=== PATIENT | female | born 1990 | race Two or more races ===

== ENCOUNTER → 2024-01-13 15:31 | Outpatient (REF) | payer BC, SELFPAY | LOC: HWRAD 15:31 | PROVIDERS: ATTENDING PHYSICIAN Family Medicine | DX: R51.9 Headache, unspecified (principal) | CPT/HCPCS: 70450 ==

== ENCOUNTER 2024-04-20 22:46 | Emergency (ER) | payer BC, SELFPAY ==
[2024-04-20 22:54] VITALS: BP 152/100
[2024-04-20 23:36] VITALS: BMI 23.6
--- NOTE | 2024-04-20 23:56 | ED.GENMED ---
History of Present Illness
General
Chief Complaint: Eye Problems
Source: patient
Exam Limitations: none
Time Seen by Provider: 04/20/24 23:05
Nursing documentation reviewed up to this point in time: agreed with
Travel History
Have you had any contact with someone who has COVID-19?: No
Do you have any symptoms of coronavirus? Fever > 100 degrees, chills, cough, shortness of breath, sore throat, loss of taste or smell, muscle aches, or headache?: No
History of Present Illness
History of Present Illness:
33-year-old female with history of migraines presents to the emergency room for evaluation of bilateral eye pain. She says that she feels like she has sand in both of her eyes; she says she is very sensitive to light. She says that she noticed
some irritation of her eyes a few days ago but did not start to have pain until today. She does wear contacts says that she got new contacts a few days ago. She says that she removed her contact lenses today due to pain. She denies any trauma to
the eyes although she says that she recently lost her pet and was crying a lot last week. She says she has history of allergies but never has severe eye discomfort with her allergies. She denies any loss of vision. She denies any discharge. She
denies any other complaints.
Past History
Past History
ED Past Medical History: Other (Syncope)
Social History
Tobacco: Non-smoker
Alcohol: Occasional
Family History
Family History: Other (Father with vasovagal syncope. Family history of hypertension hyperlipidemia and diabetes)
Review of Systems
Review of Systems
All Other Systems: ROS reviewed and negative except as documented in HPI and ROS
EENT: Reports other (Eye pain, photosensitivity, eye redness)
Phy Exam
Physical Exam
Physical Exam:
General: Well appearing and non-toxic
Head: Normocephalic atraumatic
Eyes: Pupils are 4 mm and reactive to light bilaterally; she has bilateral conjunctival injection; she has no hypopyon or hyphema; she has no foreign body on exploration of eyes bilaterally; extraocular movements are intact bilaterally; on Agustin-Pen
exam eye pressures , L , R; on fluorescein exam patient has bilateral circular corneal abrasions appear to be in the distribution of where contact lens would sit
ENT: protecting airway
Neck: appears supple
CV: No evidence of cyanosis
Resp: No accessory muscle use
Abd: Non-distended
Extremities: No deformities
Neuro: Alert
Psych: Normal affect
Skin: Intact
Scores
Heart Failure Risk
Heart Failure Risk Score: Not Applicable
Heart Score for Chest Pain Patients
STEMI patient?: Not applicable
Withdrawal Assessment of Alcohol
Withdrawal Assessment Completed?: Not applicable
Course
Orders/Labs/Results
Orders:
Orders
04/20/24 23:18
Visual Acuity- Treatment ONCE
04/20/24 23:25
Tetracaine HCl [Tetracaine 0.5% Ophthalmic Solution] 1 drop .ROUTE .STK-MED ONE
04/20/24 23:39
Ciprofloxacin HCl [Ciloxan 0.3% Ophthalmic Solution] See Dose Instructions OPHTH NOW STA
04/20/24 23:40
Ketorolac [Acular 0.5% Eye Drops] See Dose Instructions OPHTH ONCE ONE
Vital Signs
Initial and Last Documented VS:
Initial Vital Signs
Temp Pulse Resp BP Pulse Ox
36.8 C 89 18 152/100 100
04/20/24 22:54 04/20/24 22:54 04/20/24 22:54 04/20/24 22:54 04/20/24 22:54
Last Documented Vital Signs
Temp Pulse Resp BP Pulse Ox
36.8 C 89 18 152/100 100
04/20/24 22:54 04/20/24 22:54 04/20/24 22:54 04/20/24 22:54 04/20/24 22:54
MDM/Problems Addressed
Differential Diagnosis Includes:
Corneal abrasion, corneal ulcer, foreign body
MDM/Problems Addressed:
33-year-old female presents for evaluation of bilateral eye pain, redness, photosensitivity�she says she feels like she has sand in her eyes. She does wear contacts but removed them today. Denies any trauma but says she has been crying over the
past week or so and rubbing her eyes a lot. Hypertensive but otherwise normal vitals. Physical exam as above. She had resolution of her pain with topical tetracaine during fluorescein exam--exam showed bilateral circular corneal abrasions likely
from contact lenses. Her visual acuity is intact. Plan to treat with ciprofloxacin drops given that she wears contacts. Advised her not to use contacts while she is being treated for her corneal abrasions. Will prescribe ketorolac drops for pain
control. Advised to follow-up with ophthalmology tomorrow for further assessment and close outpatient follow-up. She feels comfortable with this plan. All questions answered.
*Pulse Oximetry
Patient hypoxic: no
*Critical Care Note
Total Time (30-74mins, 75-104mins- exclusive of procedures): Not Applicable
Data Reviewed
Source: patient and spouse
ED Attending Note
-
Portions of this chart may have been created with voice recognition software.� Occasional wrong word or��sound alike� substitutions may have occurred due to the inherent limitations of voice recognition software.
Discharge Plan
Departure
Patient Disposition: Home (Routine Discharge)
Date of Disposition: 04/20/24
Time of Disposition: 23:41
Patient with high blood pressure during this ER visit?: Yes
Discharge Problem:
Corneal abrasion of both eyes
Instructions: Corneal Abrasion (DC)
Prescriptions:
New
ciprofloxacin HCl 0.3 % drops
2 drp BOTH EYES QID 5 Days Qty: 5 0RF
Rx Instructions:
2 drps into both eyes;
ketorolac 0.5 % drops
1 drp BOTH EYES QID 3 Days Qty: 5 0RF
Referrals:
Willi Briggs MD [Active] - Call in 1-3 days for appt
Shakeel Fernandez DO [Family Provider] -
Activity Restrictions/Additional Instructions:
Thank you for visiting the Emergency Department at [facility].
1. Please schedule a follow up appointment as directed. Call first thing tomorrow morning to make an appointment.
2. If indicated, please take your medications as instructed and indicated on discharge paperwork.
3. If any of your symptoms do not improve, or persist, or become more severe within 6-12 hours, please return to the emergency department for further care.
4. Please return to the emergency department if you develop a headache, neck pain/stiffness, fever greater than 100.4F, chest pain, shortness of breath, persistent nausea, vomiting, slurred speech, difficulty walking, numbness/tingling, weakness,
signs of infection or any other symptoms that are worrisome to you.
Please call [phone] if you have any questions.
Interventions
Interventions:
*Risk Screen - Suicide Last Done: 04/20/24 22:54
*General Assessment Last Done: 04/20/24 22:54
*Neglect/Abuse Screening Last Done: 04/20/24 23:25
*ED COVID-19 Vaccine History Last Done: 04/20/24 23:36
Discharge Date and Time
Print Language: HUNGARIAN
[2024-04-21] MEDS: ACULAR 0.5% EYE DROPS 1 DROP OPHTH (00:20)
[2024-04-21] MEDS: CILOXAN 0.3% OPHTHALMIC SOLUTION 1 DROP OPHTH (00:20)
== END 2024-04-21 00:31 | disposition home or self-care (01) ==
LOC: EMR 22:46
PROVIDERS: EMERGENCY PHYSICIAN Emergency Medicine; FAMILY PHYSICIAN Family Medicine
DX: S05.02XA Injury of conjunctiva and corneal abrasion without foreign body, left eye, initial encounter (principal); S05.01XA Injury of conjunctiva and corneal abrasion without foreign body, right eye, initial encounter; X58.XXXA Exposure to other specified factors, initial encounter; R03.0 Elevated blood-pressure reading, without diagnosis of hypertension
CPT/HCPCS: 99283

== ENCOUNTER → 2024-06-30 11:59 | Outpatient (REF) | payer BC, SELFPAY ==
[2024-06-30 14:32] LABS: % Basophils 0.7 % (0-2); % Eosinophils 1.8 % (0-6); % Immature Granulocytes 0.3 % (0-0.5); % Lymphocytes 32.9 % (20.5-51.1); % Monocytes 7.7 % (1.7-9.3); % Neutrophils 56.6 % (42.2-75.2); Absolute Basophils 0.1 10^3/uL (0-0.2); Absolute Eosinophils 0.1 10^3/uL (0-0.7); Absolute Lymphocytes 2.4 10^3/uL (1.2-3.4); Absolute Monocytes 0.6 10^3/uL (0.1-0.6); Absolute Neutrophils 4.1 10^3/uL (1.4-6.5); Hematocrit 37.9 % (37.0-47.0); Hemoglobin 13.3 g/dL (12.0-16.0); Mean Corp Hgb Conc. 35.1 g/dL (33.0-37.0); Mean Corpuscular Hgb 31.1 pg (27.0-31.0); Mean Corpuscular Volume 88.6 fL (81.0-99.0); Mean Platelet Volume 10.2 fL (7.4-10.4); Nucleated Red Blood Cells % 0 %; Platelet Count 300 10^3/uL (130-400); Red Blood Cell Count 4.28 10^6/uL (4.20-5.40); Red Cell Dist. Width 12.4 % (11.5-14.5); White Blood Cell Count 7.2 10^3/uL (4.8-10.8)
[2024-06-30 15:31] LABS: Blood Urea Nitrogen 8 mg/dl (7-17); Calcium 9.6 mg/dl (8.4-10.2); Carbon Dioxide 21 mmol/L (22-30); Chloride 102 mmol/L (98-107); Glucose 70 mg/dl (70-99); HDL Cholesterol 90 mg/dl; LDL Cholesterol, Calculated 108 mg/dl; Potassium 4.2 mmol/L (3.5-5.1); Sodium 138 mmol/L (135-145); Total Cholesterol 211 mg/dl (50-199); Triglyceride 65 mg/dl (10-149); Very Low Density Lipoprotein 13 mg/dl (0-30); eGFR > 60.00
== END ==
LOC: REG 11:59
PROVIDERS: ATTENDING PHYSICIAN Family Medicine
DX: Z00.00 Encounter for general adult medical examination without abnormal findings (principal)
CPT/HCPCS: 36415; 80048; 80061; 85025

== ENCOUNTER → 2024-07-09 17:22 | Outpatient (REF) | payer BC, SELFPAY ==
[2024-07-09 17:51] LABS: % Basophils 0.6 % (0-2); % Eosinophils 1.6 % (0-6); % Immature Granulocytes 0.1 % (0-0.5); % Lymphocytes 29.1 % (20.5-51.1); % Monocytes 8.6 % (1.7-9.3); Absolute Basophils 0.1 10^3/uL (0-0.2); Absolute Eosinophils 0.2 10^3/uL (0-0.7); Absolute Lymphocytes 2.7 10^3/uL (1.2-3.4); Absolute Monocytes 0.8 10^3/uL (0.1-0.6); Absolute Neutrophils 5.6 10^3/uL (1.4-6.5); Hematocrit 34.2 % (37.0-47.0); Hemoglobin 12.1 g/dL (12.0-16.0); Mean Corp Hgb Conc. 35.4 g/dL (33.0-37.0); Mean Corpuscular Hgb 30.6 pg (27.0-31.0); Mean Corpuscular Volume 86.6 fL (81.0-99.0); Nucleated Red Blood Cells % 0 %; Platelet Count 241 10^3/uL (130-400); Red Blood Cell Count 3.95 10^6/uL (4.20-5.40); Red Cell Dist. Width 11.9 % (11.5-14.5); White Blood Cell Count 9.4 10^3/uL (4.8-10.8)
[2024-07-09 18:30] LABS: Rubella Low Positive
[2024-07-09 18:34] LABS: Hepatitis B Surface Antigen Negative (Negative)
[2024-07-09 18:52] LABS: Hepatitis C Antibody Negative (Negative)
[2024-07-09 22:18] LABS: Urine Albumin Negative (Neg - Trace); Urine Bilirubin Negative (Negative); Urine Character Slightly Cloudy (Clear); Urine Color Yellow; Urine Glucose Negative (Negative); Urine Ketone Negative (Negative); Urine Leukocyte Negative (Negative); Urine Nitrite Negative (Negative); Urine Occult Blood Negative (Negative); Urine Specific Gravity 1.005 (<1.030); Urine Urobilinogen Negative (Neg - 1+)
== END ==
LOC: REG 17:22
PROVIDERS: ATTENDING PHYSICIAN Nurse Practitioner Family; FAMILY PHYSICIAN Family Medicine
DX: Z32.01 Encounter for pregnancy test, result positive (principal)
CPT/HCPCS: 36415; 81003; 85025; 86762; 86780; 86803; 86850; 86900; 86901; 87086; 87340

== ENCOUNTER → 2024-07-09 17:40 | Outpatient (REF) | payer BC, SELFPAY | LOC: CPAP 17:40 | PROVIDERS: ATTENDING PHYSICIAN Obstetrics & Gynecology | DX: Z32.01 Encounter for pregnancy test, result positive (principal); Z11.3 Encounter for screening for infections with a predominantly sexual mode of transmission | CPT/HCPCS: 87491; 87591 ==

== ENCOUNTER → 2024-08-19 07:32 | Outpatient (REF) | payer BC, SELFPAY | LOC: PNTC 07:32 | PROVIDERS: ATTENDING PHYSICIAN Obstetrics & Gynecology | DX: Z36.0 Encounter for antenatal screening for chromosomal anomalies (principal); Z36.82 Encounter for antenatal screening for nuchal translucency | CPT/HCPCS: 36415; 76801; 76813 ==

== ENCOUNTER → 2024-08-27 08:26 | Outpatient (REF) | payer BC, SELFPAY ==
[2024-08-27 17:44] LABS: Urine Albumin Negative (Neg - Trace); Urine Bilirubin Negative (Negative); Urine Character Slightly Cloudy (Clear); Urine Color Straw; Urine Glucose Negative (Negative); Urine Ketone Negative (Negative); Urine Leukocyte Negative (Negative); Urine Nitrite Negative (Negative); Urine Occult Blood Negative (Negative); Urine Specific Gravity 1.015 (<1.030); Urine Urobilinogen Negative (Neg - 1+)
== END ==
LOC: CLAB 08:26
PROVIDERS: ATTENDING PHYSICIAN Obstetrics & Gynecology
DX: N39.0 Urinary tract infection, site not specified (principal)
CPT/HCPCS: 81003; 87077; 87086; 87186

== ENCOUNTER → 2024-10-13 14:28 | Outpatient (REF) | payer BC, SELFPAY | LOC: REG 14:28 | PROVIDERS: ATTENDING PHYSICIAN Student in an Organized Health Care Education/Training Program; FAMILY PHYSICIAN Family Medicine | DX: Z36.9 Encounter for antenatal screening, unspecified (principal) | CPT/HCPCS: 36415; 82105 ==

== ENCOUNTER → 2024-10-14 13:59 | Outpatient (REF) | payer BC, SELFPAY | LOC: PNTC 13:59 | PROVIDERS: ATTENDING PHYSICIAN Obstetrics & Gynecology | DX: Z36.0 Encounter for antenatal screening for chromosomal anomalies (principal) | CPT/HCPCS: 76805 ==

== ENCOUNTER → 2024-10-22 08:28 | Outpatient (REF) | payer BC, SELFPAY ==
[2024-10-25 19:33] LABS: Urine Albumin Negative (Neg - Trace); Urine Bilirubin Negative (Negative); Urine Character Very Cloudy (Clear); Urine Color Straw; Urine Glucose Negative (Negative); Urine Ketone Negative (Negative); Urine Leukocyte Negative (Negative); Urine Nitrite Negative (Negative); Urine Occult Blood Trace (Negative); Urine Urobilinogen Negative (Neg - 1+)
[2024-10-25 19:52] LABS: Urine Amorphous Seen
== END ==
LOC: CLAB 08:28
PROVIDERS: ATTENDING PHYSICIAN Obstetrics & Gynecology
DX: N39.0 Urinary tract infection, site not specified (principal); Z34.82 Encounter for supervision of other normal pregnancy, second trimester
CPT/HCPCS: 81003; 81015; 87077; 87086

== ENCOUNTER 2024-11-03 11:52 | Observation (INO) | payer BC, SELFPAY ==
[2024-11-03 12:39] VITALS: BP 111/71; BMI 25.9
[2024-11-03 12:52] LABS: % Basophils 0.4 % (0-2); % Eosinophils 0.3 % (0-6); % Immature Granulocytes 0.6 % (0-0.5); % Lymphocytes 6.9 % (20.5-51.1); % Monocytes 8.1 % (1.7-9.3); % Neutrophils 83.7 % (42.2-75.2); Absolute Immature Granulocytes 0.1 10^3/uL (0-0.05); Absolute Lymphocytes 0.5 10^3/uL (1.2-3.4); Absolute Monocytes 0.6 10^3/uL (0.1-0.6); Absolute Neutrophils 6.5 10^3/uL (1.4-6.5); Hematocrit 30.2 % (37.0-47.0); Hemoglobin 10.5 g/dL (12.0-16.0); Mean Corp Hgb Conc. 34.8 g/dL (33.0-37.0); Mean Corpuscular Hgb 31.8 pg (27.0-31.0); Mean Corpuscular Volume 91.5 fL (81.0-99.0); Mean Platelet Volume 9.1 fL (7.4-10.4); Nucleated Red Blood Cells % 0 %; Platelet Count 228 10^3/uL (130-400); Red Cell Dist. Width 12.4 % (11.5-14.5); White Blood Cell Count 7.8 10^3/uL (4.8-10.8)
[2024-11-03 12:59] LABS: Urine Albumin Negative (Neg - Trace); Urine Bilirubin Negative (Negative); Urine Character Clear (Clear); Urine Color Yellow; Urine Glucose Negative (Negative); Urine Ketone Negative (Negative); Urine Leukocyte Negative (Negative); Urine Nitrite Negative (Negative); Urine Occult Blood Negative (Negative); Urine Urobilinogen Negative (Neg - 1+)
[2024-11-03] MEDS: ROCEPHIN 1000 MG IV (14:21)
== END 2024-11-03 14:44 | disposition home or self-care (01) ==
LOC: LDRP 11:52
PROVIDERS: ADMITTING PHYSICIAN Obstetrics & Gynecology
DX: O98.512 Other viral diseases complicating pregnancy, second trimester (principal); B34.9 Viral infection, unspecified; O23.42 Unspecified infection of urinary tract in pregnancy, second trimester; B96.20 Unspecified Escherichia coli [E. coli] as the cause of diseases classified elsewhere; N39.0 Urinary tract infection, site not specified; R50.9 Fever, unspecified; Z3A.23 23 weeks gestation of pregnancy; R05.9 Cough, unspecified; R09.81 Nasal congestion; R52 Pain, unspecified; Z91.018 Allergy to other foods
CPT/HCPCS: 81003; 85025; 87040; 87086; G0378

== ENCOUNTER → 2024-11-19 12:17 | Outpatient (REF) | payer BC, SELFPAY ==
[2024-11-19 14:24] LABS: % Basophils 0.5 % (0-2); % Eosinophils 0.8 % (0-6); % Lymphocytes 18.3 % (20.5-51.1); % Neutrophils 70.4 % (42.2-75.2); Absolute Eosinophils 0.1 10^3/uL (0-0.7); Absolute Immature Granulocytes 0.1 10^3/uL (0-0.05); Absolute Lymphocytes 1.6 10^3/uL (1.2-3.4); Absolute Monocytes 0.8 10^3/uL (0.1-0.6); Absolute Neutrophils 6.2 10^3/uL (1.4-6.5); Hematocrit 28.3 % (37.0-47.0); Hemoglobin 9.7 g/dL (12.0-16.0); Mean Corp Hgb Conc. 34.3 g/dL (33.0-37.0); Mean Corpuscular Hgb 31.6 pg (27.0-31.0); Mean Corpuscular Volume 92.2 fL (81.0-99.0); Mean Platelet Volume 9.4 fL (7.4-10.4); Nucleated Red Blood Cells % 0 %; Platelet Count 335 10^3/uL (130-400); Red Blood Cell Count 3.07 10^6/uL (4.20-5.40); Red Cell Dist. Width 12.5 % (11.5-14.5); White Blood Cell Count 8.9 10^3/uL (4.8-10.8)
[2024-11-19 14:49] LABS: 1 Hour after 50gm 171 mg/dl
== END ==
LOC: REG 12:17
PROVIDERS: ATTENDING PHYSICIAN Obstetrics & Gynecology; FAMILY PHYSICIAN Family Medicine
DX: Z34.93 Encounter for supervision of normal pregnancy, unspecified, third trimester (principal)
CPT/HCPCS: 36415; 82950; 85025; 86780

== ENCOUNTER → 2024-11-26 06:26 | Outpatient (REF) | payer BC, SELFPAY ==
[2024-11-26 07:02] LABS: Glucose for Tolerance Test 84 mg/dl
[2024-11-26 08:33] LABS: Glucose for Tolerance Test 211 mg/dl
[2024-11-26 09:41] LABS: Glucose for Tolerance Test 170 mg/dl
[2024-11-26 10:49] LABS: Glucose for Tolerance Test 130 mg/dl
== END ==
LOC: REG 06:26
PROVIDERS: ATTENDING PHYSICIAN Obstetrics & Gynecology; FAMILY PHYSICIAN Family Medicine
DX: Z34.93 Encounter for supervision of normal pregnancy, unspecified, third trimester (principal)
CPT/HCPCS: 36415; 82951

== ENCOUNTER 2024-11-30 17:10 | Inpatient (IN) | payer BC, SELFPAY ==
[2024-11-30 17:35] VITALS: BP 126/79; BMI 26.7
[2024-11-30 17:39] LABS: % Basophils 0.5 % (0-2); % Eosinophils 0.6 % (0-6); % Immature Granulocytes 0.8 % (0-0.5); % Lymphocytes 18.1 % (20.5-51.1); % Monocytes 11.2 % (1.7-9.3); % Neutrophils 68.8 % (42.2-75.2); Absolute Immature Granulocytes 0.1 10^3/uL (0-0.05); Absolute Lymphocytes 1.2 10^3/uL (1.2-3.4); Absolute Monocytes 0.7 10^3/uL (0.1-0.6); Absolute Neutrophils 4.4 10^3/uL (1.4-6.5); Hematocrit 31.3 % (37.0-47.0); Mean Corp Hgb Conc. 35.1 g/dL (33.0-37.0); Mean Corpuscular Hgb 31.8 pg (27.0-31.0); Mean Corpuscular Volume 90.5 fL (81.0-99.0); Mean Platelet Volume 8.9 fL (7.4-10.4); Nucleated Red Blood Cells % 0 %; Platelet Count 217 10^3/uL (130-400); Red Blood Cell Count 3.46 10^6/uL (4.20-5.40); Red Cell Dist. Width 12.9 % (11.5-14.5); White Blood Cell Count 6.5 10^3/uL (4.8-10.8)
[2024-11-30 17:57] LABS: INR 0.97; PT 13.2 Sec (11.4-14.6)
[2024-11-30 17:58] LABS: APTT 24.8 Sec (23.4-35.0); Fibrinogen 535 MG/DL (199-459)
[2024-11-30 18:09] LABS: B.E. Cord ABG -0.8 mMOL/L; Cord ABG Comment CORD BLOOD; HCO3 Cord ABG 23.5 mmol/L; O2 Saturation % Cord ABG 65.2 %; PCO2 Cord ABG 37 mmHg; PO2 Cord ABG 29 mmHg; pH Cord ABG 7.41
[2024-11-30 18:10] LABS: Cord ABG Comment CORD BLOOD
[2024-11-30 18:13] LABS: B.E. Cord ABG -1.8 mMOL/L; HCO3 Cord ABG 23.1 mmol/L; O2 Saturation % Cord ABG 67.3 %; PCO2 Cord ABG 39 mmHg; PO2 Cord ABG 27 mmHg; pH Cord ABG 7.38
--- NOTE | 2024-11-30 19:33 | HPS.HSE ---
Family Physician
-
Family Physician: INTERVIEWE UNKNOWN - PT NOT
Chief Complaint
-
vaginal bleeding
History of Present Illness
HPI: Patient is a 34yo @27.2 who presented to Labor and Delivery with vaginal bleeding. Patient says she got home from work and noticed vaginal bleeding and she soaked through a small pad. She immediately came to the hospital for evaluation.
She denies contractions or abdominal pain, or LOF. +FM.
complications:
- Rubella non-immune
- GDM, recently diagnosed
PMHx: anemia
Meds: PNV
Surghx: denies
All: tree nuts
Socialhx: denies tobacco, etoh or illicit drug use
Famhx: maternal grandmother w/ DM
OBHx:
labs: Blood type B+, Ab neg, RNI, HBsAg neg, Hep C neg, GCCT neg, RPR nonreactive, 1hr 171, 3hr 84, 211, 170, 130
Medical History
Past Medical History
Past Medical History: Reports None
Past Surgical History: Reports None
Social History
Tobacco: Non-smoker
Alcohol: None
Drug: None
Family History
Family History: Not pertinent
Allergies / Home Medications
Allergies reflects when Allergies were last updated in [facility].
Home Medications with original date entered in [facility]
Allergy/Medication List:
Meds: PNV
NKDA, all: tree nuts
Review of Systems
-
A 12 point ROS was completed and negative except as noted: Yes
Physical Exam
Vital Signs
Vital Signs
Temp Pulse Resp BP
98.7 F 103 18 126/79
11/30/24 17:35 11/30/24 17:35 11/30/24 17:35 11/30/24 17:35
Physical Exam
General: Well Developed
HEENT: NormoCephalic
Respiratory: Non Labored Respirations
Cardiac: Regular Rhythm
Genito-urinary: Vaginal Bleeding and Other (active bleeding from vagina, when speculum placed golf ball sized clot passed with pooling of blood in the vagina, unable to visualize cervix secondary to pooling of blood)
Skin: Warm and Dry
Neuro: Awake
Psych: Anxious
Laboratory Results
-
11/30/24 19:02
Laboratory Results
PT 13.2 Sec (11.4-14.6) 11/30/24 17:39
INR 0.97 11/30/24 17:39
APTT 24.8 Sec (23.4-35.0) 11/30/24 17:39
Impression/Plan
-
IMPRESSION:
Patient is a 34yo @27.2 with vaginal bleeding, suspected placental abruption
PLAN:
- Upon exam, OR was immediately opened for urgent section for suspected placental abruption. Diagnosis discussed with patient and her . She was consented for primary section including risks, benefits and alternatives. NICU
staff and anesthesia notified.
- CBC, coags, and fibrinogen were drawn. 2 IVs were placed. Type and cross ordered.
- There was another patient on the floor who was close to delivering and there was not enough nursing staff to assist in the . Dr. Claire was called in to help assist.
- 2g Ancef prior to
--- NOTE | 2024-11-30 19:36 | OR.RPT ---
Addendum entered and electronically signed by Suha Borjas DO 12/01/24 17:03:
Procedure performed: primary low transverse section
Original Note:
Operative Report
Operative Report
Preop diagnosis: IUP @27.2, vaginal bleeding with suspected placental abruption
Postop diagnosis: same
Surgeon: [place]
Institutional Commodity Analyst: Dakotah
Anesthesia: Spinal, Dr. Rai
QBL: 225mL
Findings: Viable male born at 1756, Apgars 5/8. Delayed cord clamping performed. Normal appearing uterus, bilateral fallopian tubes and ovaries. 3cm subserosal fundal fibroid. Placenta with small clot, no obvious signs of abruption- sent to
pathology
Complications: none
Louis catheter draining clear urine before and after the procedure
Indication: Patient is a 34yo @27.2 weeks who presented to Labor and Delivery with complaints of vaginal bleeding. On arrival, she was found to have active vaginal bleeding. On speculum exam, golf ball size clot was passed with active bleeding.
Cervix was not visualized secondary to pooling of blood. There was concern for placental abruption with contractions q1-2 minutes on toco. The operating room was opened. Placental abruption was discussed with patient and her and need for
urgent section. Anesthesia and NICU were notified. Risks, benefits and alternatives discussed and all questions answered prior to proceeding. She was consented for a blood transfusion in case of emergency. CBC, coags, fibrinogen and type
and cross were drawn. Patient had 2 IVs placed.
Procedure: Patient was taken to the operating room where spinal anesthesia was administered and found to be adequate. 2g of Ancef was given for antibiotic prophylaxis. The abdomen was prepped with ChloraPrep. The patient was draped in the normal
sterile fashion. She was placed in the dorsal supine position with a left lateral tilt. A Pfannenstiel incision was made with a 10 blade and carried down to the fascia with a scalpel. Hemostasis achieved with Bovie. The fascia was incised and
dissected laterally with Head scissors. The superior aspect of the fascia was grasped with Andrew clamps. The underlying rectus fascia was sharply dissected with Head scissors. In a similar fashion the inferior aspect of the fascia was elevated with
Andrew clamps and the rectus muscle was dissected off with Head scissors. The rectus muscles were down the midline to the level of the pubic symphysis with manual dissection. The peritoneum was bluntly entered and extended using manual
traction.
Martinez retractor and bladder blade were placed revealing good visualization of the bladder. The vesicouterine peritoneum was identified. A thin lower uterine segment was noted. The lower uterine segment was incised with a scalpel. Clear fluid
noted at entry into the cavity. The uterine incision was extended bluntly with lateral and upward traction.
The fetus was in cephalic presentation. The head was elevated out of the pelvis with special attention paid to avoid using the uterine incision as a fulcrum. Gentle fundal pressure was applied one the head was brought to the incision. The head
delivered through the hysterotomy and the rest of the infant delivered without difficulty. Delayed cord clamping was performed. Cord gases were collected. The infant was handed off to the electric operator. IV oxytocin was started to facilitate uterine
contractions. The placenta was expressed with fundal massage and gentle downward pressure and sent to pathology for evaluation. The uterus was exteriorized. Allis clamps were placed at the apices of the hysterotomy. The inside of the uterus was
wiped with a lap sponge to assure complete removal of placental membranes. Fundal massage was performed and uterus noted to be firm. The uterine incision was closed with 0 Vicryl in a running locked fashion. A horizontal imbricating stitch was done
on the hysterotomy with 0 Vicryl. The hysterotomy was inspected and noted to be hemostatic. The uterus was placed back in the abdomen. Blood clots and fluid were wiped out of the abdomen and pelvis with moist laparotomy sponges. The hysterotomy was
examined again and noted to be hemostatic.
The rectus muscles were inspected and noted to be hemostatic. The fascial layer was closed in a running continuous fashion using 0 Vicryl. The subcutaneous tissue was copiously irrigated and any small bleeding vessels were cauterized with Bovie
cautery. The subcutaneous tissue was reapproximated in a running continuous fashion with 2-0 Plain. The skin was closed with 4-0 Vicryl in a subcuticular fashion. The incision was covered with skin glue. The patient tolerated the procedure well. All
sponge and instrument counts were correct times two. The patient was taken to the recovery room in stable condition.
[2024-11-30 20:50] LABS: HIV Combo Negative (Negative)
[2024-11-30] MEDS: TORADOL 15 MG IV (23:51)
[2024-12-01] MEDS: TORADOL 15 MG IV ×3 (06:30→17:46)
[2024-12-01 06:38] LABS: Hematocrit 26.3 % (37.0-47.0); Hemoglobin 9.3 g/dL (12.0-16.0); Mean Corp Hgb Conc. 35.4 g/dL (33.0-37.0); Mean Corpuscular Hgb 31.8 pg (27.0-31.0); Mean Corpuscular Volume 90.1 fL (81.0-99.0); Mean Platelet Volume 9.3 fL (7.4-10.4); Platelet Count 180 10^3/uL (130-400); Red Blood Cell Count 2.92 10^6/uL (4.20-5.40); Red Cell Dist. Width 12.6 % (11.5-14.5); White Blood Cell Count 11.1 10^3/uL (4.8-10.8)
[2024-12-01] MEDS: PRENATAL PLUS 1 TABLET PO (07:13)
--- NOTE | 2024-12-01 08:37 | W.PN.ANS.POP ---
Anesthesia Post Operative
- Anesthesia Post Op Note
Vital Signs Stable-See Nursing Note: Yes
Airway Patent: Yes
Adequate Pain Control: Yes
Change in Mental Status: No
Current Postoperative Nausea & Vomiting: No
Anesthesia Complications: No
General Anesthetic Recall: No
Unplanned Admission: No
Post Op Hydration Adequate: Yes
[2024-12-01] MEDS: VITAMIN C 500 MG PO (11:52)
[2024-12-01] MEDS: SENOKOT-S 1 TABLET PO (11:52)
[2024-12-01] MEDS: FEOSOL 325 MG PO (11:53)
[2024-12-02] MEDS: MOTRIN 600 MG PO ×2 (00:02→07:57)
[2024-12-02] MEDS: TYLENOL 650 MG PO ×2 (00:02→07:57)
[2024-12-02] MEDS: VITAMIN C 500 MG PO (07:56)
[2024-12-02] MEDS: PRENATAL PLUS 1 TABLET PO (07:56)
[2024-12-02] MEDS: SENOKOT-S 1 TABLET PO (07:56)
[2024-12-02] MEDS: FEOSOL 325 MG PO (07:56)
--- NOTE | 2024-12-02 12:39 | W.DS.TRANS ---
DC Summary - Software Trainer
-
Discharge Instructions:
Discharge Diagnosis/Procedures primary cs, abruption
Instructions:
Stand-Alone Forms: LDRP Delivery
Changes to Home Medications: No
Discharge Medications:
DC Medications w/original date entered in [facility]
Vitamin 1 tab PO DAILY Supplement 11/03/24
Home Medication Changes
Pending Results: No
Total time spent discharging patient (in min): 20
[2024-12-02] MEDS: ADACEL 0.5 ML IM (14:25)
[2024-12-03 16:47] LABS: Syphilis/T. pallidum Ab Reflex Negative (Negative)
== END 2024-12-02 16:26 | disposition home or self-care (01) | DRG 788 ==
LOC: LDRP 17:10
PROVIDERS: ADMITTING PHYSICIAN Student in an Organized Health Care Education/Training Program
PROC: 10D00Z1 Extraction of Products of Conception, Low, Open Approach (ICD-10-PCS; 2024-11-30)
DX: O45.90 Premature separation of placenta, unspecified, unspecified trimester (principal); O24.420 Gestational diabetes mellitus in childbirth, diet controlled; Z3A.27 27 weeks gestation of pregnancy; Z37.0 Single live birth
CPT/HCPCS: 88307; 82803; 85025; 85027; 85384; 85610; 85730; 86780; 86850; 86900; 86901; 87389; 90715

== ENCOUNTER → 2025-09-02 09:49 | Outpatient (REF) | payer BC, SELFPAY ==
[2025-09-02 10:49] LABS: Hematocrit 39.9 % (37.0-47.0); Hemoglobin 13.1 g/dL (12.0-16.0); Mean Corp Hgb Conc. 32.8 g/dL (33.0-37.0); Mean Corpuscular Volume 91.1 fL (81.0-99.0); Nucleated Red Blood Cells % 0 %; Platelet Count 343 10^3/uL (130-400); Red Cell Dist. Width 12.3 % (11.5-14.5)
[2025-09-02 11:04] LABS: ALT (SGPT) 19 U/L (0-35); AST (SGOT) 24 U/L (14-36); Albumin 5.0 g/dl (3.5-5.0); Alkaline Phosphatase 53 U/L (38-126); Blood Urea Nitrogen 15 mg/dl (7-17); Calcium 9.8 mg/dl (8.4-10.2); Carbon Dioxide 25 mmol/L (22-30); Chloride 105 mmol/L (98-107); Glucose 107 mg/dl (70-99); HDL Cholesterol 75 mg/dl; Potassium 4.0 mmol/L (3.5-5.1); Sodium 137 mmol/L (135-145); Total Protein 8.5 g/dl (6.3-8.2); Very Low Density Lipoprotein 17 mg/dl (0-30); eGFR > 60.00
[2025-09-02 11:22] LABS: Total Iron Binding Capacity 316 ug/dl (265-497)
[2025-09-02 11:23] LABS: LDL Cholesterol, Calculated 122 mg/dl
[2025-09-02 11:29] LABS: TSH 0.76 uIU/ml (0.47-4.68)
[2025-09-02 11:47] LABS: Ferritin 79.4 ng/ml (6.24-137)
[2025-09-02 11:55] LABS: Glycohemoglobin (HgbA1c) 5.6 % (4.0-5.9)
== END ==
LOC: REG 09:49
PROVIDERS: ATTENDING PHYSICIAN Family Medicine
DX: Z00.00 Encounter for general adult medical examination without abnormal findings (principal); D64.9 Anemia, unspecified
CPT/HCPCS: 36415; 80053; 80061; 82728; 83036; 83550; 84443; 85025

== ENCOUNTER → 2025-10-12 16:05 | Outpatient (REF) | payer BC, SELFPAY ==
[2025-10-16 02:59] LABS: HPV, High Risk Not Detected; HPV, High Risk Source Cervix
== END ==
LOC: CPAP 16:05
PROVIDERS: ATTENDING PHYSICIAN Obstetrics & Gynecology
DX: Z12.4 Encounter for screening for malignant neoplasm of cervix (principal); Z11.51 Encounter for screening for human papillomavirus (HPV); Z01.419 Encounter for gynecological examination (general) (routine) without abnormal findings
CPT/HCPCS: 87491; 87591; 87624